=== PATIENT | male | born 1970 | race Two or more races ===

== ENCOUNTER 2018-08-08 11:07 | Emergency (ER) | payer OTHER ==
[~2018-08-08] VITALS: Ht 177.8 cm; Wt 89.8 kg
[2018-08-08] MEDS ORDERED: NORVASC5 MG ORAL (11:18)
[2018-08-08] MEDS ORDERED: LOSARTAN POTASS50 MG ORAL (11:18)
[2018-08-08] MEDS ORDERED: Morphine Sulfate 4mg/ml Inj (IV USE ONLY) IVP ONE (11:30)
--- NOTE | 2018-08-08 11:30 | NUR ---
ED Nurse Note: pt walked in c/o abd pain since sunday night, reports diarrhea and nausea, denies vomiting. pt reports chills and states he had fever before. pt AA&ox4, skin warm and dry, resp even and unlabored on RA, reports nausea, no active v/d at this time, active BS, abd soft nontender nondistended, ambulates w/ steady gait, vss, will cont monitor.
--- NOTE | 2018-08-08 12:00 | NUR ---
ED Nurse Note: pt states he cannot urinate at this time, will try again.
[2018-08-08 12:16] VITALS: BP 119/91
[2018-08-08 12:26] LABS: HEMATOCRIT 53.2 % (42.0-52.0); MEAN CORPUSCULAR VOLUME 89 FL (80-99); PLATELET COUNT 181 K/UL (150-450); RED BLOOD COUNT 5.97 M/UL (4.70-6.10); RED CELL DISTRIBUTION WIDTH 11.6 % (11.6-14.8)
[2018-08-08 12:27] LABS: HEMOGLOBIN 18.1 G/DL (14.2-18.0)
[2018-08-08 12:29] LABS: ANION GAP 16 mmol/L (5-15); BLOOD UREA NITROGEN 19 mg/dL (7-18); CALCIUM 8.8 MG/DL (8.5-10.1); CARBON DIOXIDE 23 MMOL/L (21-32); CHLORIDE 93 MMOL/L (98-107); CREATININE 2.8 MG/DL (0.55-1.30); POTASSIUM 2.9 MMOL/L (3.5-5.1); SODIUM 132 MMOL/L (136-145)
[2018-08-08 12:33] LABS: ALANINE AMINOTRANSFERASE 16 U/L (12-78); ALBUMIN 3.4 G/DL (3.4-5.0); ALBUMIN/GLOBULIN RATIO 0.6 (1.0-2.7); ALKALINE PHOSPHATASE 74 U/L (46-116); ASPARTATE AMINO TRANSFERASE 24 U/L (15-37); BILIRUBIN,TOTAL 0.8 MG/DL (0.2-1.0)
--- NOTE | 2018-08-08 13:09 | Emergency Room Report ---
History of Present Illness General Chief Complaint: Nausea, Vomiting, and Diarrhea Source: Patient Present Illness HPI 47-year-old male with no medical problems, no surgical history, no history of tobacco alcohol or drug use, presents with nausea vomiting abdominal pain, reports she's only vomited once but has been having diarrhea for the last few days, reports the pain is periumbilical, achy, with subjective fevers as well, denies urinary symptoms, reports pain is intermittent, no change with by mouth intake. Reports anorexia. Allergies: Coded Allergies: No Known Allergies (Unverified , 08/08/18) Patient History Past Medical History: see triage record Reviewed Nursing Documentation: PMH: Agreed; PSxH: Agreed Nursing Documentation-PMH Past Medical History: No History, Except For Hx Hypertension: Yes Review of Systems All Other Systems: negative except mentioned in HPI Physical Exam Vital Signs Date Time Temp Pulse Resp B/P (MAP) Pulse Ox O2 Delivery O2 Flow Rate FiO2 08/08/18 11:13 99.0 97 22 155/98 97 08/08/18 12:16 Room Air Sp02 EP Interpretation: reviewed, normal General Appearance: no apparent distress, alert, non-toxic Head: normocephalic Eyes: bilateral eye normal inspection, bilateral eye PERRL, bilateral eye EOMI ENT: normal ENT inspection, hearing grossly normal, normal pharynx, no angioedema, normal voice, dry mucus membranes Neck: normal inspection, full range of motion, supple, supple/symm/no masses Respiratory: chest non-tender, lungs clear, normal breath sounds, chest symmetrical, palpation of chest normal Cardiovascular #1: normal peripheral pulses, regular rate, rhythm Cardiovascular #2: 2+ radial (R), 2+ radial (L) Gastrointestinal: normal inspection, non tender, soft, no mass, no guarding, no rebound Rectal: deferred Genitourinary: normal inspection, no CVA tenderness Musculoskeletal: back normal, gait/station normal, normal range of motion, non- tender, no calf tenderness Neurologic: alert, responsive, hoop rolls operator III-XII nml as tested, motor strength/tone normal, sensory intact, speech normal Psychiatric: judgement/insight normal, memory normal, mood/affect normal Skin: normal color, no rash, warm/dry, normal turgor Lymphatic: no adenopathy Medical Decision Making Diagnostic Impression: Primary Impression: Nausea, vomiting, and diarrhea Additional Impression: Acute kidney injury ER Course Patient with no medical problems presents with acute kidney injury, dehydration , left-sided abnormalities, given IV fluids, potassium, will admit. Abdominal ultrasound is unremarkable, as is chest x-ray EKG Diagnostic Results EKG Time: 11:34 EP Interpretation: no stemi Rate: normal Rhythm: NSR ST Segments: no acute changes ASA given to the pt in ED: No Rhythm Strip Diag. Results Rhythm Strip Time: 13:09 EP Interpretation: yes Rate: 100 Rhythm: NSR, no PVC's, no ectopy Last Vital Signs Date Time Temp Pulse Resp B/P (MAP) Pulse Ox O2 Delivery O2 Flow Rate FiO2 08/08/18 12:34 99.0 08/08/18 12:16 118 18 119/91 100 Room Air Disposition: ADMITTED INPATIENT Condition: Stable Referrals: [facility],REFERRING (PCP) KAYLIN CHAKRABORTY M.D Aug 08, 2018 13:09
--- NOTE | 2018-08-08 13:10 | NUR ---
ED Nurse Note: ultrasound at the bedside, ermd aware pt's k-2.9.
[2018-08-08 14:00] VITALS: BP 121/86
--- NOTE | 2018-08-08 14:08 | NUR ---
ED Nurse Note: pt off to CT.
--- NOTE | 2018-08-08 14:10 | NUR ---
ED Nurse Note: called pharmacy to change K 20meq to 10meq x2.
--- NOTE | 2018-08-08 14:11 | Diagnostic Imaging Report ---
Indication: Abdominal pain, vomiting, abnormal renal function tests Technique: Proctor-scale and duplex images of the upper abdomen were obtained Comparison: none Findings: Exam somewhat limited by overlying bowel gas and patient inability to suspend respiration Gallbladder is unremarkable, without stones, wall thickening, nor pericholecystic fluid. There is some sludge present. Sonographic Fowler's sign is negative. Common bile duct measures 5 mm in diameter. No intrahepatic biliary ductal dilatation. Liver demonstrates normal echogenicity, no focal abnormality. Portal vein and hepatic veins are patent. Pancreas is incompletely visualized due to overlying bowel gas, visualized portions are unremarkable. Spleen is unremarkable. Left kidney measures 11.6 cm in length. Right kidney measures 11.4 cm length. Both kidneys demonstrate normal echogenicity. There is no hydronephrosis. No focal abnormality . Abdominal aorta is partially obscured by bowel gas, visualized portions are non-aneurysmal . Impression: Somewhat limited exam, as described. Note obscuration of portions of the pancreas and abdominal aorta Gallbladder sludge. Negative for stones or dilated ducts No other significant abnormality
--- NOTE | 2018-08-08 14:13 | Diagnostic Imaging Report ---
Indication: Chest pain Technique: One view of the chest Comparison: none Findings: Lungs and pleural spaces are clear. Heart size is normal Impression: No acute process
--- NOTE | 2018-08-08 14:36 | Diagnostic Imaging Report ---
Indication: Abdominal pain, nausea, vomiting Technique: Spiral acquisitions obtained through the abdomen and pelvis. No oral contrast utilized, per emergency room physician request No IV contrast utilized, per referring physician request.. Multiplanar reconstructions were generated. Total dose length product 808.38 mGycm. CTDIvol(s) 15.7 mGy. Dose reduction achieved using automated exposure control Comparison: None Findings: Lack of enteric contrast limits assessment of the GI tract. The ascending colon is prominent, fluid-filled, equivocally mildly thick walled. There is definite wall thickening of the transverse colon, with infiltration of the pericolonic fat. There is slight prominence of the terminal ileum and possible minimal wall thickening of the distal ileum. Prominent lymph nodes are seen in the right lower quadrant mesentery. There is distal colonic diverticulosis. Of note, diverticula are not seen in the area of wall thickening. The appendix is normal. No small bowel distention. No free or loculated intraperitoneal gas or fluid is evident. Lack of IV contrast limits assessment of solid organs. The liver is equivocal is slightly hypoattenuating. No focal abnormality. The gallbladder is unremarkable; sludge seen on recent sonogram is not visible. No biliary ductal dilatation. The pancreas, spleen, adrenals, kidneys are all unremarkable. No renal or ureteral calculi, hydronephrosis, or hydroureter. A retroaortic left renal vein is incidentally noted. No retroperitoneal or mesenteric mass or adenopathy. No pelvic mass or adenopathy. The included lung bases are clear. The bones demonstrate mild degenerative change at the lumbosacral junction Impression: Wall thickening of the transverse colon and possibly the ascending colon. This is suspicious for colitis, nonspecific as regards etiology There may be some wall thickening of the distal ileum is well, could represent associated ileitis. Colonic diverticulosis. No evidence of diverticulitis Prominent right lower quadrant lymph nodes, likely reactive related to the above Incidental finding of degenerative spondylosis, retroaortic left renal vein-normal anatomic variant The CT scanner at [facility] is accredited by the [employer] and the scans are performed using protocols designed to limit radiation exposure to as low as reasonably achievable to attain images of sufficient resolution adequate for diagnostic evaluation.
[2018-08-08 16:00] VITALS: BP 118/76
--- NOTE | 2018-08-08 16:44 | NUR ---
Patients mother can be reached at [phone]
[2018-08-08 17:09] LABS: APPEARANCE,URINE SLIGHTLY CLOUDY; BILIRUBIN, URINE NEGATIVE (NEGATIVE); COLOR,URINE PALE YELLOW; GLUCOSE, URINE (UA) NEGATIVE (NEGATIVE); KETONES,URINE 2+ (NEGATIVE); LEUKOCYTE ESTERASE ,URINE NEGATIVE (NEGATIVE); NITRITE,URINE NEGATIVE (NEGATIVE); PH,URINE 6 (4.5-8.0); PROTEIN,URINE 2+ (NEGATIVE); UROBILINOGEN,URINE NORMAL MG/DL (0.0-1.0)
--- NOTE | 2018-08-08 17:14 | NUR ---
ED Nurse Note: report given to FERNANDO Marrufo from [facility] at [facility].
[2018-08-08] MEDS ORDERED: UNOBMED (17:35)
[2018-08-08 18:00] VITALS: BP 128/87
--- NOTE | 2018-08-08 18:50 | NUR ---
ED Nurse Note: pt reports headache, ERMD notified, tylenol 650mg po order received, verified w/ ERMD for oral fluids.
--- NOTE | 2018-08-08 19:04 | NUR ---
HAND-OFF: report given to FERNANDO [place] and endorsed care, pt vss, pending xfr.
--- NOTE | 2018-08-08 20:16 | NUR ---
ED Nurse Note: report given to ambulance staff at the bedside, pt getting transferred to [facility] to continue care. vss. iv intact and patent.
[2018-08-08 20:22] VITALS: BP 132/76
--- NOTE | 2018-08-09 21:58 | Cardiology Report ---
APPROVED REPORT EKG Measurement Heart [id number] Sinus tachycardia Possible Left atrial enlargement Possible inferior infarct, age undetermined Abnormal ECG
== END 2018-08-09 04:22 | disposition other institution (70) ==
LOC: EMR 11:43
DX: R11.2 Nausea with vomiting, unspecified (principal); R19.7 Diarrhea, unspecified; N17.9 Acute kidney failure, unspecified; I10 Essential (primary) hypertension; K57.30 Diverticulosis of large intestine without perforation or abscess without bleeding
CPT/HCPCS: 36415; 71045; 74176; 76700; 80053; 81003; 83690; 84484; 85007; 85025; 93005; 96361; 96365; 96366; 96375; 99285; J2270; J2405; J3480; J8499

== ENCOUNTER 2018-10-24 22:45 | Emergency (ER) | payer OTHER ==
[~2018-10-24] VITALS: Ht 175.3 cm; Wt 86.2 kg
[~2018-10-24 22:45] MED LIST: LOSARTAN POTASS50 MG ORAL; NORVASC5 MG ORAL; UNOBMED
[2018-10-24 22:50] VITALS: BP 132/93
--- NOTE | 2018-10-24 22:55 | NUR ---
ED Nurse Note: PT CAME TO ED FROM HOME C/O BUG BITES ALL OVER HIS BODY. PT'S SKIN IS RED AND ENFLAMED. PT'S SCLERA IS RED WELL. pT IS A&OX4, VSS
[2018-10-24] MEDS ORDERED: BACTRIM DS TAB1 EAC1 ORAL (23:14)
[2018-10-24] MEDS ORDERED: MUPIROCIN22 GM TOPIC (23:14)
--- NOTE | 2018-10-24 23:14 | Emergency Room Report ---
History of Present Illness General Chief Complaint: Skin Rash/Abscess Source: Patient Present Illness [facility] This is a 47-year-old male with no past medical history except for high blood pressure. Since with chief complaint of spider bite. He denies any spider biting him. He woke up with rash on his arm for the last 2 days. Now seems to be spreading. Itching in nature. No fever chills. No nausea no vomiting. Worse with scratching. No discharge. Allergies: Coded Allergies: No Known Allergies (Unverified , 08/08/18) Patient History Past Medical History: see triage record, old chart reviewed Past Surgical History: none Pertinent Family History: none Social History: Denies: smoking Immunizations: other Reviewed Nursing Documentation: PMH: Agreed; PSxH: Agreed Nursing Documentation-PMH Hx Hypertension: Yes Hx Gastrointestinal Problems: Yes - colitis Review of Systems Eye: Denies: eye pain, blurred vision ENT: Denies: ear pain, nose congestion, throat swelling Respiratory: Denies: cough, shortness of breath Cardiovascular: Denies: chest pain, palpitations Gastrointestinal: Denies: abdominal pain, diarrhea, nausea, vomiting Musculoskeletal: Denies: back pain, joint pain Skin: Reports: rash Neurological: Denies: headache, numbness Endocrine: Denies: increased thirst, increased urine Hematologic/Lymphatic: Denies: easy bruising All Other Systems: negative except mentioned in HPI Physical Exam Vital Signs Date Time Temp Pulse Resp B/P (MAP) Pulse Ox O2 Delivery O2 Flow Rate FiO2 10/24/18 22:48 98.4 82 17 132/93 (106) 95 Room Air Vitals unremarkable Sp02 EP Interpretation: reviewed, normal General Appearance: well appearing, no apparent distress, alert Head: normocephalic, atraumatic Eyes: bilateral eye PERRL, bilateral eye EOMI ENT: hearing grossly normal, normal pharynx Neck: full range of motion, supple, no meningismus Respiratory: chest non-tender, lungs clear, normal breath sounds Cardiovascular #1: regular rate, rhythm, no murmur Gastrointestinal: normal bowel sounds, non tender, no mass, no organomegaly, no bruit, non-distended Musculoskeletal: back normal, gait/station normal, normal range of motion Neurologic: alert, oriented x3 Psychiatric: mood/affect normal Skin: rash - Scatter 1 cm erythematous rash on his left upper extremity. No purulent discharge. No crepitance. Medical Decision Making Diagnostic Impression: Primary Impression: Cellulitis Qualified Codes: L03.114 - Cellulitis of left upper limb ER Course Patient presents with cellulitis of his upper extremities, mostly left side. No evidence of any abscess or necrotizing fasciitis. Most likely MRSA. Last Vital Signs Date Time Temp Pulse Resp B/P (MAP) Pulse Ox O2 Delivery O2 Flow Rate FiO2 10/24/18 22:48 98.4 82 17 132/93 (106) 95 Room Air Status: improved Disposition: HOME, SELF-CARE Condition: Stable Scripts Mupirocin* (MUPIROCIN*) 22 Gm Oint...g. 1 APPLIC TOPIC THREE TIMES A DAY, #22 GM Prov: Karthik Rogers MD 10/24/18 Trimethoprim/Sulfamethoxazole 160/800* (BACTRIM DS TABLET*) 1 Each Tablet 1 TAB ORAL Q12H, #14 TAB 0 Refills Prov: Karthik Rogers MD 10/24/18 Additional Instructions: Clean area with hydrogen peroxide first. Then apply antibiotic ointment. Follow-up with your doctor in 7 days for recheck. Return if worse. Karthik Rogers MD Oct 24, 2018 23:14
[2018-10-24] MEDS ORDERED: Bactrim-DS 1 tab ORAL ONE (23:15)
--- NOTE | 2018-10-24 23:20 | NUR ---
ER DISCHARGE NOTE: Patient is cleared to be discharged per ERMD, pt is aox4, on room air, with stable vital signs. pt was given dc and prescription instructions, pt was able to verbalize understanding, pt id band REMOVED. pt is able to ambulate with steady gait. pt took all belongings.
== END 2018-10-24 23:20 | disposition home or self-care (01) ==
LOC: EMR 23:03
DX: L03.114 Cellulitis of left upper limb (principal); I10 Essential (primary) hypertension
CPT/HCPCS: 99282